=== PATIENT | female | born 1960 | race Caucasian/White ===

== ENCOUNTER 2016-04-18 14:07 | Emergency (ER) | payer BC, MEDICARE ==
--- NOTE | 2016-05-15 08:22 | ER ---
ADMIT: 04/18/2016 RM/LOC: ER [facility] MR#: [id number] [address] [id number] HEATHER BRODY [address] [place] [address] Emergency Room Report SEX: F AGE: 56 : 1960 DATE: 04/18/2016 ADDENDUM: This patient comes to the ER because she has had a cough, sore throat, sinus pain, fever, and headache for the last month. She is concerned that she is not getting better. On physical exam, her O2 saturation was 96%, and she did not have a fever. Her lungs were clear and her abdomen was soft. CBC, BMP, and urinalysis were normal, and her chest x-ray was negative. DIAGNOSIS: Sinusitis. IV of normal saline was started. She was given a liter of bolus with Toradol and Zofran. She is currently taking an antibiotic for a sinus infection, we will have her continue with that medication and she is to follow up with Dr. Strickland as needed. Please see my T-sheet. EZIO Araya / Salvatore Hernandez MD / flaviol JOB #: [id number] CC: Salvatore Hernandez MD, Attending Physician Jeet Strickland MD, Family Physician
== END 2016-04-18 19:05 | disposition home or self-care (01) ==
LOC: ER 14:07
DX: J32.9 Chronic sinusitis, unspecified (principal); E03.9 Hypothyroidism, unspecified; Z90.710 Acquired absence of both cervix and uterus; Z98.890 Other specified postprocedural states; Z79.899 Other long term (current) drug therapy